=== PATIENT | male | born 1990 | race African-American/Black ===

== ENCOUNTER 2017-08-07 14:58 | Emergency (ER) | payer SELFPAY ==
[~2017-08-07] VITALS: Ht 172.7 cm; Wt 77.3 kg
[2017-08-07 15:11] VITALS: BP 154/112; PULSE 66; RESP 18; TEMP 98.1; O2SAT 100
--- NOTE | 2017-08-07 15:42 | RADRPT ---
EXAM DATE/TIME: 08/07/2017 15:21 [place] COMPARISON: No previous studies available for comparison. INDICATIONS : Left shoulder pain, posterior abrasion. Fell MEDICAL HISTORY : None. SURGICAL HISTORY : None. ENCOUNTER: Initial ACUITY: 1 day PAIN SCORE: 9/10 LOCATION: Left Shoulder FINDINGS: Multiple view examination of the left shoulder demonstrates no evidence of fracture or dislocation. The glenohumeral and acromioclavicular joints are maintained. There is normal range of motion betwee n internal and external rotation. Bony mineralization is normal. CONCLUSION: No acute disease. Mauro Caceres MD on August 07, 2017 at 15:40 Board Certified Radiologist. This report was verified electronically.
[2017-08-07] MEDS ORDERED: IBUP1TAB7 PO (18:06)
--- NOTE | 2017-08-07 18:07 | PD ---
HPI Chief Complaint: Injury Time Seen by Provider: 17:31 Travel History International Travel<30 days: No Contact w/Intl Traveler<30days: No Traveled to known affect area: No History of Present Illness HPI This is a 26-year-old male who has left shoulder pain after he fell from his skateboard yesterday. He denies head injury or loss of consciousness. He has pain in the left shoulder which is worse with range of motion and slightly relieved with rest. He denies paresthesia or weakness of the extremity. Symptom severity is moderate. He denies any other injuries. [facility] Past Medical History Medical History: Denies Significant Hx Anxiety: Yes Inguinal Hernia: Yes Social History Alcohol Use: No Tobacco Use: No Substance Use: No Allergies-Medications (Allergen,Severity, Reaction): Coded Allergies: No Known Allergies (Unverified , 04/29/12) Reported Meds & Prescriptions Reported Meds & Active Scripts Active Review of Systems Except as stated in HPI: all other systems reviewed are Neg General / Constitutional: No: Fever Eyes: No: Visual changes HENT: No: Headaches Cardiovascular: No: Chest Pain or Discomfort Respiratory: No: Shortness of Breath Gastrointestinal: No: Abdominal Pain Genitourinary: No: Dysuria Musculoskeletal: Positive: Pain (left shoulder) Skin: No Rash Neurologic: No: Weakness Psychiatric: No: Depression Physical Exam Narrative GENERAL: Alert and well-appearing 26-year-old male SKIN: Warm and dry. Abrasion to the left posterior shoulder. HEAD: Normocephalic. Atraumatic EYES: Pupils equal, round, reactive to light. EOMs intact.. No injection or drainage. NECK: Supple, trachea midline. No line spine tenderness CARDIOVASCULAR: Regular rate and rhythm. No chest wall tenderness RESPIRATORY: Breath sounds equal bilaterally. No accessory muscle use. GASTROINTESTINAL: Abdomen soft, non-tender, nondistended. MUSCULOSKELETAL: No cyanosis, or edema. Left upper extremity: Abrasion to the left posterior aspect of the shoulder. No obvious deformity. Patient has tenderness to the proximal humeral head and posterior aspect of the shoulder. Limited forward extension, abduction due to pain. 2+ brachial and radial pulse. Normal sensation. Brisk cap refill. BACK: Nontender without obvious deformity. No CVA tenderness. Data Data Last Documented VS Vital Signs Date Time Temp Pulse Resp B/P (MAP) Pulse Ox O2 Delivery O2 Flow Rate FiO2 08/07/17 15:11 98.1 66 18 154/112 (126) 100 Orders Orders Shoulder, Complete (>2vws) (08/07/17 ) ^ Sling (08/07/17 17:59) MDM Medical Decision Making Medical Screen Exam Complete: Yes Emergency Medical Condition: Yes Differential Diagnosis Shoulder Fracture, dislocation, sprain Narrative Course 26-year-old male here with left shoulder pain after he fell from his skateboard yesterday. The extremity is neurovascularly intact. X-rays negative for fracture dislocation. Suspect there is a rotator cuff injury. Patient was put in sling and instructed to follow with his PCP orthopedic doctor. Diagnosis Primary Impression: Left shoulder strain Qualified Codes: S46.912A - Strain of unspecified muscle, fascia and tendon at shoulder and upper arm level, left arm, initial encounter Referrals: Orthopedist Primary Care Physician Departure Forms: Tests/Procedures, Work Release Special Instructions: Must wear left upper extremity sling until cleared by primary or orthopedic doctor Additional Instructions: Sling as needed for comfort. Tylenol and ibuprofen for pain. Avoid heavy lifting or strenuous activity. Follow-up the primary doctor for recheck this week Scripts Ibuprofen (Ibuprofen) 800 Mg Tab 800 MG PO Q6HR Y for PAIN, #40 TAB 0 Refills Prov: Alicia Garay 08/07/17 Disposition: 01 DISCHARGE HOME Condition: Stable Alicia Garay Aug 07, 2017 18:07
== END 2017-08-07 19:03 | disposition home or self-care (01) ==
LOC: NEPK 14:58
DX: S46.912A Strain of unspecified muscle, fascia and tendon at shoulder and upper arm level, left arm, initial encounter (principal); F41.9 Anxiety disorder, unspecified; V00.131A Fall from skateboard, initial encounter
CPT/HCPCS: 73030; 99283